=== PATIENT | male | born 1975 | race Native Hawaiian/Other Pacific Islander ===

== ENCOUNTER 2016-12-18 12:25 | Emergency (ER) | payer OTHER ==
[~2016-12-18] VITALS: Ht 177.8 cm; Wt 98.6 kg
[~2016-12-18 12:25] MED LIST: ALBU8.5H3 IH; ASEN10TA8 SL; ASEN5TAB6 SL; FLUO10TA3 PO; PSYCH
[2016-12-18] MEDS ORDERED: TOPI25 PO (12:32)
[2016-12-18] MEDS ORDERED: BP MED (12:32)
[2016-12-18] MEDS ORDERED: CefTRIAXone SODIUM 1 GM/VIAL IM ONE (15:00)
[2016-12-18] MEDS ORDERED: LISI-661 PO (15:00)
[2016-12-18] MEDS ORDERED: AZITHROMYCIN 250 MG TABLET PO ONE (15:00)
[2016-12-18] MEDS ORDERED: LIDOCAINE HCL/PF 1% 2 ML VIAL IM ONE (15:00)
[2016-12-18 15:24] VITALS: BP 118/81
== END 2016-12-18 15:24 | disposition home or self-care (01) ==
LOC: EMS 12:29
DX: Z20.2 Contact with and (suspected) exposure to infections with a predominantly sexual mode of transmission (principal); F20.9 Schizophrenia, unspecified; F17.210 Nicotine dependence, cigarettes, uncomplicated; J45.909 Unspecified asthma, uncomplicated
CPT/HCPCS: 96372; 99284; 99406; J0696; J3490

== ENCOUNTER 2017-03-13 20:11 | Emergency (ER) | payer OTHER ==
[~2017-03-13] VITALS: Ht 177.8 cm; Wt 98.6 kg
[~2017-03-13 20:11] MED LIST changes: -FLUO10TA3 PO; +LISI-661 PO; -PSYCH; +TOPI25 PO
[2017-03-13] MEDS ORDERED: AZIT250T6 PO (21:08)
[2017-03-13] MEDS ORDERED: METF500T4 PO (21:08)
[2017-03-13 21:28] LABS: APPEARANCE,URINE CLEAR (CLEAR); GLUCOSE, URINE (UA) NEGATIVE (NEGATIVE); KETONES,URINE 15 mg/dL (NEGATIVE); LEUKOCYTE ESTERASE ,URINE NEGATIVE (NEGATIVE); OCCULT BLOOD,URINE NEGATIVE (NEGATIVE); PH,URINE 6.5 (5.0-8.0); PROTEIN,URINE NEGATIVE (NEGATIVE)
[2017-03-13 21:29] LABS: ADD UA MICROSCOPIC NO
[2017-03-13 21:30] VITALS: BP 131/83
[2017-03-13] MEDS ORDERED: CefTRIAXone SODIUM 1 GM/VIAL IM ONE (21:45)
[2017-03-13] MEDS ORDERED: LIDOCAINE HCL/PF 1% 2 ML VIAL IM ONE (21:45)
[2017-03-13] MEDS ORDERED: AZITHROMYCIN 250 MG TABLET PO ONE (21:45)
[2017-03-16 09:30] LABS: GC DNA N.A. AMPLIFY Negative (Negative)
== END 2017-03-13 21:56 | disposition home or self-care (01) ==
LOC: EMS 20:13
DX: N34.2 Other urethritis (principal); I10 Essential (primary) hypertension; E78.00 Pure hypercholesterolemia, unspecified; J45.909 Unspecified asthma, uncomplicated
CPT/HCPCS: 81003; 87491; 87591; 96372; 99284; J0696; J3490; 99283

== ENCOUNTER 2017-04-13 11:24 | Emergency (ER) | payer OTHER ==
[~2017-04-13] VITALS: Ht 172.7 cm; Wt 96.0 kg
[~2017-04-13 11:24] MED LIST changes: +AZIT250T6 PO; +METF500T4 PO
[2017-04-13] MEDS ORDERED: SIMV-260 PO (11:34)
[2017-04-13 12:35] VITALS: BP 138/85
[2017-04-13 17:22] LABS: GLUCOSE,POINT OF CARE 111 MG/DL (70-110)
== END 2017-04-13 12:56 | disposition home or self-care (01) ==
LOC: EMS 11:25
DX: L23.9 Allergic contact dermatitis, unspecified cause (principal); L29.9 Pruritus, unspecified; J45.909 Unspecified asthma, uncomplicated; E78.00 Pure hypercholesterolemia, unspecified; I10 Essential (primary) hypertension; Z20.7 Contact with and (suspected) exposure to pediculosis, acariasis and other infestations
CPT/HCPCS: 82962; 99282

== ENCOUNTER 2017-04-18 12:39 | Emergency (ER) | payer OTHER ==
[~2017-04-18] VITALS: Ht 177.8 cm; Wt 94.1 kg
[~2017-04-18 12:39] MED LIST changes: -AZIT250T6 PO; +SIMV-260 PO
[2017-04-18 14:26] VITALS: BP 120/80
== END 2017-04-18 14:54 | disposition home or self-care (01) ==
LOC: EMS 12:40
DX: B86 Scabies (principal); L29.9 Pruritus, unspecified; I10 Essential (primary) hypertension; E78.00 Pure hypercholesterolemia, unspecified; J45.909 Unspecified asthma, uncomplicated
CPT/HCPCS: 82962; 99283

== ENCOUNTER 2017-10-12 10:51 | Inpatient (IN) | payer MEDICAID, OTHER ==
[~2017-10-12] VITALS: Ht 162.6 cm; Wt 76.2 kg
[2017-10-12 11:22] LABS: BASOPHILS % (AUTO) 0.5 % (0.0-2.0); EOSINOPHILS % (AUTO) 2.2 % (1.0-6.0); HEMATOCRIT 37.5 % (41-53); HEMOGLOBIN 12.7 g/dL (13.5-17.5); LYMPHOCYTES # (AUTO) 1.5 K/uL (1.0-4.8); LYMPHOCYTES % (AUTO) 26.7 % (22.0-44.0); MEAN CORPUSCULAR HEMOGLOBIN 28.9 pg (26.0-34.0); MEAN CORPUSCULAR HGB CONC 33.8 G/dL (31.0-37.0); MEAN CORPUSCULAR VOLUME 85 fL (80-100); MONOCYTES # (AUTO) 0.4 K/uL (0.1-1.0); MONOCYTES % (AUTO) 6.9 % (2.0-9.0); NEUTROPHILS # (AUTO) 3.6 K/uL (1.8-7.7); NEUTROPHILS % (AUTO) 63.7 % (40.0-70.0); PLATELET COUNT (AUTO) 309 K/uL (150-450); RED CELL DISTRIBUTION WIDTH 15.8 % (11.5-14.5)
[2017-10-12] MEDS ORDERED: HALOPERIDOL LACTATE 5 MG/ML VIAL IM ONE ×2 (11:30→23:30)
[2017-10-12] MEDS ORDERED: DiphenhydrAMINE HCL 50 MG/ML VIAL IM ONE ×2 (11:30→23:30)
[2017-10-12] MEDS ORDERED: LORazepam 2 MG/ML VIAL IM ONE ×2 (11:30→23:30)
[2017-10-12 11:36] LABS: ANION GAP 10 mmol/L (8-16); CALCIUM, TOTAL 8.9 mg/dL (8.8-10.5); CARBON DIOXIDE 25 mmol/L (22-29); CHLORIDE 100 mmol/L (98-107); GLOMERULAR FILTR. RATE CALC > 60 mL/min (>60); GLUCOSE,RANDOM 125 mg/dL (70-110); POTASSIUM 3.1 mmol/L (3.5-5.1); SODIUM SERUM 135 mmol/L (136-145); UREA NITROGEN, BLOOD 8 mg/dL (7-18)
[2017-10-12 11:43] LABS: ALANINE AMINOTRANSFERASE 35 U/L (12-78); ALBUMIN 3.5 g/dL (3.4-5.0); ALKALINE PHOSPHATASE 76 U/L (46-116); ASPARTATE AMINOTRANSFERASE 25 U/L (15-37); BILIRUBIN,TOTAL 0.6 mg/dL (0.1-1.0); TOTAL PROTEIN, SERUM 7.4 g/dL (6.4-8.2)
[2017-10-12 11:53] LABS: GLUCOSE,POINT OF CARE 123 MG/DL (70-110)
[2017-10-12] MEDS ORDERED: POTASSIUM CHLORIDE 20 MEQ ER TABLET PO ONE (13:30)
[2017-10-12] MEDS ORDERED: ZOLPIDEM TARTRATE 10 MG TABLET PO PRN (14:15)
[2017-10-12 15:10] LABS: CHOL/HDL RATIO 3.5 (4.2-7.3); CHOLESTEROL 206 mg/dL (131-200); HDL CHOLESTEROL 59 mg/dL (40-60); LDL CHOL (CALC.) 131 mg/dL (0-130); TRIGLYCERIDES 79 mg/dL (15-150)
[2017-10-12 19:54] LABS: AMPHET/METH SCREEN,URINE NEGATIVE (NEGATIVE); BARBITURATE SCREEN, URINE NEGATIVE (NEGATIVE); BENZODIAZEPINES SCREEN,URINE NEGATIVE (NEGATIVE); CANNABINOID SCREEN,URINE POSITIVE (NEGATIVE); COCAINE SCREEN,URINE NEGATIVE (NEGATIVE); METHADONE SCREEN, URINE NEGATIVE (NEGATIVE); OPIATE SCREEN,URINE NEGATIVE (NEGATIVE)
[2017-10-12 19:57] LABS: PHENCYCLIDINE SCREEN,URINE NEGATIVE (NEGATIVE)
[2017-10-13] MEDS ORDERED: HALOPERIDOL LACTATE 5 MG/ML VIAL ONE (14:53)
[2017-10-13] MEDS ORDERED: DiphenhydrAMINE HCL 50 MG/ML VIAL ONE (14:53)
[2017-10-13] MEDS ORDERED: LORazepam 2 MG/ML VIAL ONE (14:53)
[2017-10-13] MEDS ORDERED: DiphenhydrAMINE HCL 50 MG/ML VIAL IM ONE (15:00)
[2017-10-13] MEDS ORDERED: LORazepam 2 MG/ML VIAL IM ONE (15:00)
[2017-10-13] MEDS ORDERED: HALOPERIDOL LACTATE 5 MG/ML VIAL IM ONE (15:00)
[2017-10-14 07:57] LABS: GLUCOSE,POINT OF CARE 174 MG/DL (70-110)
[2017-10-14] MEDS ORDERED: LORazepam 2 MG/ML VIAL IM ONE (08:45)
[2017-10-14] MEDS ORDERED: DEXTROSE 50%-WATER 25 GM/50 ML SYRINGE IVP PRN (16:45)
[2017-10-14] MEDS ORDERED: ALBUTEROL SULFATE HFA 90 MCG/PUFF 8 GM INHALER IH PRN (16:45)
[2017-10-14] MEDS: MetFORMIN HCL 500 MG TABLET PO SCH (17:29)
[2017-10-14] MEDS: SIMVASTATIN 20 MG TABLET PO SCH (20:12)
[2017-10-15] MEDS: MetFORMIN HCL 500 MG TABLET PO SCH ×2 (06:48→17:01)
[2017-10-15 08:00] VITALS: BP 158/74
[2017-10-15] MEDS: LORazepam 2 MG TABLET PO PRN (08:33)
[2017-10-15] MEDS: LISINOPRIL 10 MG TABLET PO SCH (08:33)
[2017-10-15] MEDS: HALOPERIDOL 5 MG TABLET PO PRN (08:33)
[2017-10-15] MEDS: NICOTINE 21 MG/24 HOUR PATCH TD SCH (09:55)
[2017-10-15 11:33] LABS: GLUCOMETER DEV NAME(LOC) 3EC; GLUCOSE,POINT OF CARE 109 MG/DL (70-110)
[2017-10-15] MEDS: INSULIN ASPART 100 UNITS/ML SQ PRN (11:33)
[2017-10-15] MEDS ORDERED: MAG HYDROX/AL HYDROX/SIMETH 30 ML SUSP UDCUP PO PRN (13:00)
[2017-10-15] MEDS: OLANZapine 10 MG RAPDIS TABLET PO SCH (17:01)
[2017-10-15 17:30] VITALS: BP 150/82
[2017-10-15] MEDS: SIMVASTATIN 20 MG TABLET PO SCH (20:40)
[2017-10-15 21:32] LABS: GLUCOMETER DEV NAME(LOC) 3EC; GLUCOSE,POINT OF CARE 114 MG/DL (70-110)
[2017-10-16] MEDS: MetFORMIN HCL 500 MG TABLET PO SCH ×2 (06:37→17:30)
[2017-10-16] MEDS: LORazepam 2 MG TABLET PO PRN ×2 (08:19→13:21)
[2017-10-16] MEDS: HALOPERIDOL 5 MG TABLET PO PRN ×2 (08:19→13:21)
[2017-10-16] MEDS: LISINOPRIL 10 MG TABLET PO SCH (08:19)
[2017-10-16] MEDS: OLANZapine 10 MG RAPDIS TABLET PO SCH ×2 (08:21→17:45)
[2017-10-16] MEDS: NICOTINE 21 MG/24 HOUR PATCH TD SCH (08:25)
[2017-10-16 11:28] LABS: GLUCOMETER DEV NAME(LOC) 3EI B; GLUCOSE,POINT OF CARE 140 MG/DL (70-110)
[2017-10-16] MEDS: INSULIN ASPART 100 UNITS/ML SQ PRN (11:40)
[2017-10-16] MEDS: SIMVASTATIN 20 MG TABLET PO SCH (20:19)
[2017-10-17] MEDS: MetFORMIN HCL 500 MG TABLET PO SCH ×2 (06:32→17:18)
[2017-10-17] MEDS: LORazepam 2 MG TABLET PO PRN ×3 (07:48→17:20)
[2017-10-17] MEDS: HALOPERIDOL 5 MG TABLET PO PRN ×3 (07:48→17:20)
[2017-10-17] MEDS: NICOTINE 21 MG/24 HOUR PATCH TD SCH (08:28)
[2017-10-17] MEDS: LISINOPRIL 10 MG TABLET PO SCH (08:28)
[2017-10-17] MEDS: OLANZapine 10 MG RAPDIS TABLET PO SCH ×2 (08:28→17:20)
[2017-10-17] MEDS: SIMVASTATIN 20 MG TABLET PO SCH (20:17)
[2017-10-17 20:31] VITALS: BP 124/86
[2017-10-18] MEDS: MetFORMIN HCL 500 MG TABLET PO SCH (06:57)
[2017-10-18] MEDS: OLANZapine 10 MG RAPDIS TABLET PO SCH (08:12)
[2017-10-18] MEDS: LISINOPRIL 10 MG TABLET PO SCH (08:13)
[2017-10-18] MEDS: NICOTINE 21 MG/24 HOUR PATCH TD SCH (08:16)
[2017-10-18] MEDS ORDERED: OLAN10TA6 PO (09:40)
[2017-10-18 11:28] LABS: GLUCOMETER DEV NAME(LOC) 3EC; GLUCOSE,POINT OF CARE 94 MG/DL (70-110)
[2017-10-18] MEDS: INSULIN ASPART 100 UNITS/ML SQ PRN (11:42)
== END 2017-10-18 12:00 | disposition home or self-care (01) | DRG 751 ==
LOC: EMS 10:52 → 3EC 10-14 12:27 → UNDOADMIN 10-14 12:27 → 3EC 10-14 15:03
PROVIDERS: ADMIT Psychiatry & Neurology Child & Adolescent Psychiatry; ATTEND Psychiatry & Neurology Child & Adolescent Psychiatry
DX: F29 Unspecified psychosis not due to a substance or known physiological condition (principal); F20.9 Schizophrenia, unspecified; I10 Essential (primary) hypertension; E78.5 Hyperlipidemia, unspecified; F12.90 Cannabis use, unspecified, uncomplicated; D64.9 Anemia, unspecified; J45.909 Unspecified asthma, uncomplicated; E87.6 Hypokalemia
CPT/HCPCS: 82962; 96372; 99285; 99406; G0480; J1200; J1630; J2060

== ENCOUNTER 2025-06-03 06:45 | Day surgery (SDC) | payer MEDICAID ==
[~2025-06-03] VITALS: Ht 177.8 cm; Wt 106.8 kg
[~2025-06-03 06:45] MED LIST changes: +ALBU18HF12 IH; -ALBU8.5H3 IH; -ASEN10TA8 SL; -ASEN5TAB6 SL; +ATOR20TA65 PO; +ESCI20TA37 PO; +FLUT1BLS15 IH; -LISI-661 PO; -METF500T4 PO; +PALI546S IM; +PRED-554 PO; -SIMV-260 PO; -TOPI25 PO
[2025-06-03] MEDS ORDERED: FAMO20 PO (07:04)
[2025-06-03] MEDS ORDERED: BUDE10.2 PO (07:04)
[2025-06-03] MEDS ORDERED: LURA80TA2 PO (07:04)
[2025-06-03] MEDS ORDERED: OMEG-237 PO (07:04)
[2025-06-03] MEDS ORDERED: MONT-40 PO (07:04)
[2025-06-03] MEDS ORDERED: TIOT4MIS2 IH (07:04)
[2025-06-03] MEDS ORDERED: EZET10TA57 PO (07:04)
[2025-06-03] MEDS ORDERED: METF-445 PO (07:04)
[2025-06-03] MEDS ORDERED: LISI5TAB21 PO (07:04)
[2025-06-03] MEDS ORDERED: LORA10TA7 PO (07:04)
[2025-06-03] MEDS: SODIUM CHLORIDE 0.9% 1,000 ML IV ONE (07:29)
[2025-06-03] MEDS ORDERED: FentaNYL CITRATE PF 100 MCG/2 ML VIAL ONE (08:23)
[2025-06-03] MEDS ORDERED: MIDAZOLAM HCL 2 MG/2 ML VIAL ONE (08:23)
[2025-06-03 10:20] VITALS: PULSE 65; RESP 20; O2SAT 97
[2025-06-03 10:21] LABS: GLUCOMETER DEV NAME(LOC) SDS.; GLUCOSE,POINT OF CARE 139 MG/DL (70-110)
[2025-06-03] MEDS ORDERED: LIDOCAINE 4% 50 ML SOLUTION ONE (12:00)
[2025-06-03] MEDS ORDERED: ALBUTEROL SULFATE 2.5 MG/0.5 ML NEB SOLUTION NEB ONE (12:00)
[2025-06-03] MEDS ORDERED: LIDOCAINE 2% 11 ML JELLY ONE (12:00)
[2025-06-03] MEDS ORDERED: BENZOCAINE 20% 50 MCG/SPRAY 57 GM ONE (12:00)
== END 2025-06-03 13:05 | disposition home or self-care (01) ==
LOC: SDS 06:45
PROVIDERS: ATTEND Internal Medicine Critical Care Medicine
DX: R05.3 Chronic cough (principal); J38.4 Edema of larynx; B37.0 Candidal stomatitis; Z79.899 Other long term (current) drug therapy; Z79.82 Long term (current) use of aspirin; Z98.890 Other specified postprocedural states; E78.00 Pure hypercholesterolemia, unspecified; F25.8 Other schizoaffective disorders
CPT/HCPCS: 31623; 82962; 87206; 87101; 87220; 87070; 31624; 94760; 71045; 87015; J3010; J2250; J2919; 88108; J7613; Z7610